=== PATIENT | male | born 1985 | race Caucasian/White ===

== ENCOUNTER 2019-11-08 10:04 | Emergency (ER) | payer OTHER ==
[~2019-11-08] VITALS: Ht 188 cm; Wt 68.9 kg
[2019-11-08 10:33] VITALS: BP 123/77
== END 2019-11-08 11:48 | disposition home or self-care (01) ==
LOC: ER 10:16
DX: S00.03XA Contusion of scalp, initial encounter (principal); S60.221A Contusion of right hand, initial encounter; W20.8XXA Other cause of strike by thrown, projected or falling object, initial encounter; Y93.89 Activity, other specified; Y92.59 Other trade areas as the place of occurrence of the external cause; Y99.8 Other external cause status
CPT/HCPCS: 70450